=== PATIENT | female | born 1970 | race Caucasian/White ===

== ENCOUNTER 2017-08-26 17:18 | Emergency (ER) | payer OTHER ==
[~2017-08-26] VITALS: Ht 162.6 cm; Wt 71.7 kg
--- NOTE | 2017-08-26 17:40 | NUR ---
Received patient for discharge, patient is resting comfortably on gurney, AOx4, respiration:easy, calm, NAD
--- NOTE | 2017-08-26 17:43 | NUR ---
Patient discharged to home in stable conditon & steady gait. Written and verbal after care instructions given to patient. Patient verbalizes understanding of instructions.
== END 2017-08-26 17:45 | disposition home or self-care (01) ==
LOC: ER 17:20
DX: J32.9 Chronic sinusitis, unspecified (principal)
CPT/HCPCS: 99283; A4663

== ENCOUNTER 2018-02-07 21:53 | Emergency (ER) | payer OTHER ==
[~2018-02-07] VITALS: Ht 162.6 cm; Wt 68.0 kg
--- NOTE | 2018-02-07 22:03 | NUR ---
Dr. Salgado at bedside for MSE.
[2018-02-07] MEDS ORDERED: PIPERACILLIN/TAZOBACTAM/D5W 50 ML IV ONE (22:14)
[2018-02-07] MEDS ORDERED: PIPERACILLIN SODIUM/TAZOBACTAM 3.375 G in IV DEXTROSE 5% 50 ML IV ONE (22:15)
[2018-02-07] MEDS ORDERED: TDAP DIPH,PERTUSS,TET VAC/PF 0.5 ML DISP.SYRIN IM ONE ×2 (22:15)
--- NOTE | 2018-02-07 22:35 | NUR ---
Patient discharged to home in stable conditon. Written and verbal after care instructions given. Patient verbalizes understanding of instructions. Pt ambulated out of ER with steady gait, no acute signs of distress, VSS, all belongings taken, IV site discontinued.
[2018-02-07 22:41] VITALS: BP 121/75
== END 2018-02-07 22:41 | disposition home or self-care (01) ==
LOC: ER 21:55
DX: S61.452A Open bite of left hand, initial encounter (principal); L03.114 Cellulitis of left upper limb; Z91.040 Latex allergy status; W54.0XXA Bitten by dog, initial encounter; Y93.89 Activity, other specified; Y92.89 Other specified places as the place of occurrence of the external cause; Y99.8 Other external cause status
CPT/HCPCS: 90471; 90715; 96365; 99284; J2543; A4663

== ENCOUNTER 2018-02-08 22:45 | Emergency (ER) | payer OTHER ==
[~2018-02-08] VITALS: Ht 162.6 cm; Wt 68.0 kg
--- NOTE | 2018-02-08 22:55 | NUR ---
Patient came into ER for wound check due to dog bite. No redness or swelling noted
--- NOTE | 2018-02-08 23:05 | NUR ---
Patient discharged to home in stable conditon. Written and verbal after care instructions given. Patient verbalizes understanding of instructions. Walked out of ER with no distress noted
== END 2018-02-08 23:11 | disposition home or self-care (01) ==
LOC: ER 22:46
DX: S61.452D Open bite of left hand, subsequent encounter (principal); Z91.040 Latex allergy status; W54.0XXD Bitten by dog, subsequent encounter
CPT/HCPCS: A4663

== ENCOUNTER 2018-09-02 20:25 | Emergency (ER) | payer OTHER ==
[~2018-09-02] VITALS: Ht 162.6 cm; Wt 68.0 kg
--- NOTE | 2018-09-02 21:11 | NUR ---
Shae arrived at the ER with chief complaint of sorethroat that started [id number] ago. Patient denies any coughing, runny nose. Came in to the ER for further evaluation. No complain of CP/SOB. Patient AAOx4. In no respiratory distress. No cardiovascular concern. No /Gi concern. Bed on lock position. Fall precaution per protocol.
--- NOTE | 2018-09-02 21:20 | NUR ---
JUAN BUSTILLO at bedside for MSE.
--- NOTE | 2018-09-02 21:32 | NUR ---
Specimen sent to lab for strep screen.
[2018-09-02] MEDS: ACETAMINOPHEN ES 500 MG TABLET PO ONE (21:35)
[2018-09-02] MEDS: IBUPROFEN 600 MG TABLET PO ONE (21:35)
[2018-09-02] MEDS ORDERED: IBUPROFEN 600 MG TABLET ONE (21:37)
[2018-09-02] MEDS ORDERED: ACETAMINOPHEN ES 500 MG TABLET ONE (21:37)
--- NOTE | 2018-09-02 22:01 | NUR ---
Patient discharged to home in stable conditon. Written and verbal after care instructions given. Patient verbalizes understanding of instructions. Patient a,bulated from ER with steady gait. All belongings with patient.
[2018-09-02 22:02] VITALS: BP 140/94
== END 2018-09-02 22:04 | disposition home or self-care (01) ==
LOC: ER 20:27
DX: J02.8 Acute pharyngitis due to other specified organisms (principal); B97.89 Other viral agents as the cause of diseases classified elsewhere; Z91.040 Latex allergy status
CPT/HCPCS: 87070; A4663; A9150

== ENCOUNTER 2019-05-15 10:52 | Emergency (ER) | payer OTHER ==
[~2019-05-15] VITALS: Ht 162.6 cm; Wt 72.6 kg
--- NOTE | 2019-05-15 11:29 | NUR ---
PT IS IN ROOM #1B. DR BAIRES EVALUATED THE PT.
[2019-05-15] MEDS ORDERED: CEFTRIAXONE 1 G VIAL IM ONE (12:30)
[2019-05-15] MEDS ORDERED: CEFTRIAXONE 1 G VIAL ONE (12:32)
[2019-05-15] MEDS ORDERED: LIDOCAINE HCL 2% 20 ML VIAL ONE (12:33)
--- NOTE | 2019-05-15 12:55 | NUR ---
PT WAS D/C'D TO HOME. D/C INSTRUCTIONS GIVEN TO THE PT BY DR BAIRES.
[2019-05-15 12:56] VITALS: BP 135/74
== END 2019-05-15 13:01 | disposition home or self-care (01) ==
LOC: ER 10:52
DX: J18.9 Pneumonia, unspecified organism (principal); Z91.040 Latex allergy status
CPT/HCPCS: 71045; 87400; 96372; 99284; J0696; J3490; A4663